=== PATIENT | male | born 1965 | race Caucasian/White ===

== ENCOUNTER 2017-06-02 06:46 | Day surgery (SDC) | payer BC, OTHER ==
[2017-06-02] MEDS ORDERED: Propofol 200 MG/20 ML SDV ONE (07:25)
[2017-06-02] MEDS ORDERED: fentaNYL 100 MCG/2 ML SDV ONE (07:25)
[2017-06-02] MEDS ORDERED: Midazolam 1 MG/ML 2 ML SDV ONE (07:25)
[2017-06-02] MEDS ORDERED: Lactated Ringers 1,000 ML IV SCH (07:30)
--- NOTE | 2017-06-02 09:58 | OR ---
DATE OF PROCEDURE: 06/02/2017 PREOPERATIVE DIAGNOSIS: Colon cancer screening, but father had colon cancer. POSTOPERATIVE DIAGNOSES: Unremarkable colonoscopy screening, but father had colon cancer. PROCEDURE: Colonoscopy to the cecum. SURGEON: Bairon Sandhu MD ANESTHESIA: IV anesthesia with monitored anesthesia care. INDICATION: This is a 51-year-old white male who is referred for a colonoscopy, which is described as screening; however, his father had colon cancer. He has never had a colonoscopic exam. I counseled him for the procedure including the risks and alternatives, and he gave his informed consent to proceed. DESCRIPTION OF PROCEDURE: The patient was placed in the left lateral decubitus position. IV anesthesia was administered by the Anesthesia Service. Time-out was held. A rectal exam was performed, which was unremarkable. The flexible video Olympus colonoscope was introduced through his anus, up his rectum, and out his colon all the way to the cecum. Once the cecum was reached, the scope was slowly withdrawn, examining the mucosa throughout. No mucosal abnormalities were noted. No neoplastic lesions were seen. The scope was retroflexed in the rectum with the distal rectum appearing unremarkable. The scope was straightened and removed. He tolerated the procedure well. Bairon Sandhu MD /[id number]
== END 2017-06-02 09:45 | disposition home or self-care (01) ==
LOC: JP.SDS 06:46
PROVIDERS: ATTEND Surgery
DX: Z12.11 Encounter for screening for malignant neoplasm of colon (principal); Z80.0 Family history of malignant neoplasm of digestive organs
CPT/HCPCS: 45378; J2250; J2704; J3010; J7120